=== PATIENT | male | born 1965 | race Caucasian/White ===

== ENCOUNTER 2023-10-20 20:15 | Emergency (ER) | payer SELFPAY ==
[2023-10-20] MEDS ORDERED: Tetracaine HCl/PF 0.5% 4 ML Bottle EYEBOTH STA (21:03)
== END 2023-10-20 21:24 | disposition left against medical advice (07) ==
LOC: MW.ED 20:15
DX: Z53.21 Procedure and treatment not carried out due to patient leaving prior to being seen by health care provider (principal)